=== PATIENT | male | born 1945 | race Caucasian/White ===

== ENCOUNTER → 2016-10-22 | Outpatient (CLI) | payer MEDICARE, OTHER ==
[~2016-10-22] MED LIST: ALBUTEROL INHALER; AMBIEN PO; ASPIRIN PO; ATENOLOL PO; C-PAP; GLUCOPHAGE XR500 MG PO; NITROGYLCERIN SUBLINGUAL; PLAVIX PO; PREVACID PO; SEROQUEL PO; VIT E PO; ZANTAC PO; ZETIA PO
--- NOTE | ~2016-10-22 | US5 ---
[facility] A Service of [facility] & [facility] RADIOLOGY TEXT RESULTS PATIENT: SETH ARRIOLA LOCATION: US : 45 UNIT #: [id number] AGE: [address]: Doyle Flower MD SEX: M ORDER DR: [id number] [facility] [address] [place], [place] [address] [id number] O MR#: [id number] Acc #: [id number] NAME: SETH ARRIOLA : 1945 SEX: M STUDY DATE/TIME: 10/22/2016 9:09 UNIT: CGUS ROOM: STUDY DESCRIPTION: US Abdominal Complete Attending Physician: Doyle Flower III, M.D. Referring Physician: Doyle Flower III, M.D. Ordering Physician: Doyle Flower III, M.D. Primary Care Physician: Rudi Sotelo M.D. MEDICAL IMAGING REPORT This report is preliminary unless electronic signature is present EXAM Complete abdominal ultrasound. COMPARISON September 23, 2014. INDICATIONS 71-year-old male with elevated liver function tests for 2 years. History of non-alcoholic steatohepatitis for 2 years. Surveillance for cirrhosis and hepatocellular carcinoma. FINDINGS The visualized portions of the pancreas are unremarkable. Hepatic contour is smooth. Portal architecture is preserved. There is mild hepatomegaly with a hepatic length of 17.7 cm. Hepatic veins appear patent. No focal hepatic lesions. Main portal vein is patent with normal flow, direction, and waveform. The right kidney is normal in size and cortical thickness, measuring up to 12.5 cm in length. There is a nonobstructive calculus in the right kidney versus multiple adjacent calculi. This conglomerate measures up to approximately 8 mm x 6 mm x 6 mm. There is no right hydronephrosis. Gallbladder wall thickness is normal at 2 mm. There is no pericholecystic fluid. No shadowing cholelithiasis. Normal caliber common bile duct measuring just under 4 mm. There is normal caliber of the abdominal aorta which is patent. The IVC is patent in the upper abdomen. Normal caliber of the iliac arteries at the aortic bifurcation. Normal size and appearance of the spleen. Left kidney is normal in size, measuring up to 14 cm with normal cortical thickness. There is no hydronephrosis of either kidney. No left renal lesions are seen. Urinary bladder is not imaged. IMPRESSION 1. Mild hepatomegaly without evidence of cirrhosis or focal hepatic lesion. No evidence of steatosis. [facility]. [facility] A Service of [facility] RADIOLOGY TEXT RESULTS PATIENT: SETH ARRIOLA LOCATION: [facility] : 45 UNIT #: [id number] AGE: [address]: Doyle Flower MD SEX: M ORDER DR: 2. No findings of portal hypertension. Normal size of the spleen. 3. Nonobstructive right renal calculus. Please note the urinary bladder is not seen. Otherwise normal abdominal ultrasound. Dictated by... Narciso Taylor M.D. THIS IS AN ELECTRONICALLY VERIFIED REPORT Narciso Taylor M.D. at 10/27/2016 6:13 PM PAVEL/juventino TD: 10/22/2016 19:24 JOB #: [id number] MEDICAL IMAGING REPORT Page 1 of 1 COPY
== END | disposition home or self-care (01) ==
LOC: CGUS 08:34
DX: K75.81 Nonalcoholic steatohepatitis (NASH) (principal); R16.0 Hepatomegaly, not elsewhere classified; N20.0 Calculus of kidney
CPT/HCPCS: 76700